=== PATIENT | male | born 1970 | race Caucasian/White ===

== ENCOUNTER 2017-12-02 17:51 | Inpatient (IN) | payer MEDICAID ==
[~2017-12-02] VITALS: Ht 180.3 cm; Wt 88.6 kg
[2017-12-02 19:26] LABS: CALCIUM 8.3 mg/dL (8.5-10.1); CHLORIDE SERUM 109 mmol/L (98-107); CREATININE SERUM 0.9 mg/dL (0.7-1.3); GFR1 > 60 mL/min; GLUCOSE SERUM 148 mg/dL (74-106); POTASSIUM SERUM 3.9 mmol/L (3.5-5.1); SODIUM SERUM 139 mmol/L (136-145)
[2017-12-02 19:30] LABS: ALKALINE PHOSPHATASE 214 U/L (46-116); ALT/SGPT 108 U/L (16-63); AST/SGOT 93 U/L (15-37); CHOLESTEROL 165 mg/dL (<200); TOTAL PROTEIN, SERUM 7.9 g/dL (6.4-8.2)
[2017-12-02 19:32] LABS: BASOPHIL % 0.3 % (0-2)
[2017-12-02 19:33] LABS: ALBUMIN 2.8 g/dL (3.4-5.0)
[2017-12-02 19:54] LABS: PLATELET COUNT 93 x10^3mcL (130-400); RED CELL DISTRIBUTION WIDTH 15.4 % (11.5-14.5)
[2017-12-02 19:56] LABS: AMPHETAMINE QUAL UR NONE DETECTED (NEG <=1000)
[2017-12-02 20:28] LABS: microscopic required? NO
[2017-12-02 20:34] LABS: UA SPECIFIC GRAVITY <=1.005 (1.005-1.035); urine erythrocyte NEGATIVE (NEGATIVE)
[2017-12-02 20:43] LABS: PHOSPHOROUS 3.5 mg/dL (2.5-4.9)
[2017-12-02 20:53] LABS: T3 TOTAL 1.38 ng/mL
[2017-12-02 20:54] LABS: FREE T4 0.99 ng/dL (0.76-1.46); FREE THYROXINE INDEX 2.6 ug/dL (1.4-4.5); T4(THYROXINE) 8.6 ug/dL (4.7-13.3)
[2017-12-02 21:05] VITALS: BP 152/105
[2017-12-02] MEDS ORDERED: METFORMIN HCL1000 MG PO (22:33)
[2017-12-02] MEDS ORDERED: JANUVIA100 M1 PO (22:33)
[2017-12-02] MEDS ORDERED: DEPAKOTE500 MG PO (22:34)
[2017-12-02] MEDS ORDERED: SEROQUEL25 MG PO (22:35)
[2017-12-02] MEDS ORDERED: ZESTRIL20 MG PO (22:36)
[2017-12-02] MEDS ORDERED: VICTOZA6 MG/M1 (22:37)
[2017-12-03 05:26] VITALS: BP 137/88
[2017-12-03 07:25] LABS: CALCIUM 8.1 mg/dL (8.5-10.1); CARBON DIOXIDE 27.3 mmol/L (21-32); CHLORIDE SERUM 112 mmol/L (98-107); CREATININE SERUM 0.7 mg/dL (0.7-1.3); GFR1 > 60 mL/min; GLUCOSE SERUM 115 mg/dL (74-106); POTASSIUM SERUM 3.6 mmol/L (3.5-5.1); SODIUM SERUM 145 mmol/L (136-145)
[2017-12-03 08:00] LABS: BASOPHIL % 0.6 % (0-2)
[2017-12-03 08:01] LABS: PLATELET COUNT 93 x10^3mcL (130-400); RED CELL DISTRIBUTION WIDTH 15.2 % (11.5-14.5)
[2017-12-03 08:39] VITALS: BP 147/99
[2017-12-03] MEDS ORDERED: ACT15 PO (09:54)
[2017-12-03 12:37] VITALS: BP 103/56
[2017-12-03 12:54] VITALS: BP 150/102
[2017-12-03 17:52] VITALS: BP 168/117
[2017-12-03 20:26] VITALS: BP 151/103
[2017-12-04 05:00] VITALS: BP 129/71
[2017-12-04 06:50] LABS: CHLORIDE SERUM 111 mmol/L (98-107); POTASSIUM SERUM 3.5 mmol/L (3.5-5.1); SODIUM SERUM 142 mmol/L (136-145)
[2017-12-04 06:51] LABS: CALCIUM 8.3 mg/dL (8.5-10.1); CARBON DIOXIDE 25.9 mmol/L (21-32); CREATININE SERUM 0.8 mg/dL (0.7-1.3); GFR1 > 60 mL/min; GLUCOSE SERUM 86 mg/dL (74-106)
[2017-12-04 07:06] LABS: BASOPHIL % 0.3 % (0-2)
[2017-12-04 07:07] LABS: PLATELET COUNT 102 x10^3mcL (130-400); RED CELL DISTRIBUTION WIDTH 14.8 % (11.5-14.5)
[2017-12-04 11:00] VITALS: BP 145/97
[2017-12-04 11:01] VITALS: BP 145/97
[2017-12-04 14:05] VITALS: BP 160/103
[2017-12-04 18:23] VITALS: BP 147/99
[2017-12-04 21:53] VITALS: BP 153/91
[2017-12-05 05:57] VITALS: BP 146/91
[2017-12-05 06:38] LABS: CALCIUM 8.5 mg/dL (8.5-10.1); CARBON DIOXIDE 27.3 mmol/L (21-32); CHLORIDE SERUM 108 mmol/L (98-107); CREATININE SERUM 0.9 mg/dL (0.7-1.3); GFR1 > 60 mL/min; GLUCOSE SERUM 79 mg/dL (74-106); PHOSPHOROUS 4.4 mg/dL (2.5-4.9); POTASSIUM SERUM 3.5 mmol/L (3.5-5.1); SODIUM SERUM 143 mmol/L (136-145)
[2017-12-05 07:58] LABS: BASOPHIL % 0.4 % (0-2); PLATELET COUNT 130 x10^3mcL (130-400); RED CELL DISTRIBUTION WIDTH 15.2 % (11.5-14.5)
[2017-12-05] MEDS ORDERED: LAC30L PO (12:19)
[2017-12-05 12:26] VITALS: BP 141/87
[2017-12-07 14:58] VITALS: Ht 180.3 cm; Wt 88.6 kg
== END 2017-12-05 13:14 | disposition home or self-care (01) | DRG 279 ==
LOC: ED 17:51 → DU 20:11 → EDBEDREQ 20:14 → DU 20:53
PROVIDERS: Family Medicine; Specialist
DX: K72.90 Hepatic failure, unspecified without coma (principal); E43 Unspecified severe protein-calorie malnutrition; K74.69 Other cirrhosis of liver; K76.0 Fatty (change of) liver, not elsewhere classified; I10 Essential (primary) hypertension; E11.9 Type 2 diabetes mellitus without complications; F20.9 Schizophrenia, unspecified; F17.210 Nicotine dependence, cigarettes, uncomplicated; Z68.29 Body mass index [BMI] 29.0-29.9, adult; Z79.84 Long term (current) use of oral hypoglycemic drugs
CPT/HCPCS: 36600; 82962; 83880; 84439; 87804; G0480; J1200; J3411; J3475; J3490; J7030; Q0092

== ENCOUNTER 2017-12-24 21:37 | Emergency (ER) | payer MEDICAID ==
[~2017-12-24] VITALS: Ht 180.3 cm; Wt 88.0 kg
[~2017-12-24 21:37] MED LIST: ACT15 PO; DEPAKOTE500 MG PO; JANUVIA100 M1 PO; LAC30L PO; METFORMIN HCL1000 MG PO; SEROQUEL25 MG PO; VICTOZA6 MG/M1; ZESTRIL20 MG PO
[2017-12-24 22:56] LABS: BASOPHIL % 0.6 % (0-2); PLATELET COUNT 135 x10^3mcL (130-400); RED CELL DISTRIBUTION WIDTH 14.1 % (11.5-14.5)
[2017-12-24 23:05] LABS: CALCIUM 8.5 mg/dL (8.5-10.1); CARBON DIOXIDE 28.4 mmol/L (21-32); CHLORIDE SERUM 110 mmol/L (98-107); CREATININE SERUM 0.9 mg/dL (0.7-1.3); GFR1 > 60 mL/min; GLUCOSE SERUM 89 mg/dL (74-106); POTASSIUM SERUM 3.7 mmol/L (3.5-5.1); SODIUM SERUM 144 mmol/L (136-145)
[2017-12-24 23:10] LABS: ALKALINE PHOSPHATASE 215 U/L (46-116); ALT/SGPT 170 U/L (16-63); AST/SGOT 122 U/L (15-37); BILIRUBIN TOTAL 1.4 mg/dL (0.20-1.00); TOTAL PROTEIN, SERUM 8.2 g/dL (6.4-8.2)
[2017-12-24 23:11] LABS: ALBUMIN 3.1 g/dL (3.4-5.0)
[2017-12-25 00:45] VITALS: BP 128/81
== END 2017-12-25 00:45 | disposition home or self-care (01) ==
LOC: ED 21:37
PROVIDERS: Emergency Medicine
DX: R53.1 Weakness (principal); K74.60 Unspecified cirrhosis of liver; I10 Essential (primary) hypertension; E11.9 Type 2 diabetes mellitus without complications
CPT/HCPCS: 36415

== ENCOUNTER 2017-12-28 23:44 | Emergency (ER) | payer MEDICAID ==
[~2017-12-28] VITALS: Ht 180.3 cm; Wt 87.7 kg
[2017-12-28 23:51] VITALS: Ht 180.3 cm; Wt 87.7 kg
[2017-12-29 01:03] VITALS: BP 141/91
== END 2017-12-29 01:03 | disposition home or self-care (01) ==
LOC: ED 23:44
DX: K59.00 Constipation, unspecified (principal); I10 Essential (primary) hypertension; E11.9 Type 2 diabetes mellitus without complications; K74.60 Unspecified cirrhosis of liver